=== PATIENT | male | born 1940 | race Caucasian/White ===

== ENCOUNTER 2017-09-27 23:42 | Emergency (ER) | payer MEDICARE, BC ==
[~2017-09-27] VITALS: Ht 170.2 cm; Wt 63.5 kg
[2017-09-27 23:50] VITALS: BP 180/111
[2017-09-28] MEDS ORDERED: CEPHALEXIN500 MG ORAL (01:13)
[2017-09-28] MEDS ORDERED: Cephalexin 500mg cap ORAL ONE (01:15)
[2017-09-28 01:31] VITALS: BP 153/86
--- NOTE | 2017-09-28 04:58 | Emergency Room Report ---
History of Present Illness General Chief Complaint: Nosebleed Source: Patient, Friend Present Illness HPI 77-year-old male since ED for evaluation. Patient brought in by EMS for epistaxis. Friend at bedside and states bleeding started about 3 hours ago. Sudden onset. Unable to control the bleeding so they called 911. Blood pressure high on initial evaluation. Patient denies any pain. Denies any recent trauma. Denies taking blood thinners. No other aggravating relieving factors. Denies any other associated symptoms Allergies: Coded Allergies: No Known Allergies (Unverified , 09/27/17) Patient History Past Medical History: GERD Past Surgical History: none Pertinent Family History: none Social History: Denies: smoking, alcohol use, drug use Immunizations: UTD Reviewed Nursing Documentation: PMH: Agreed; PSxH: Agreed Nursing Documentation-PMH Hx Gastrointestinal Problems: Yes - GERD Review of Systems All Other Systems: negative except mentioned in HPI Physical Exam Vital Signs Date Time Temp Pulse Resp B/P (MAP) Pulse Ox O2 Delivery O2 Flow Rate FiO2 09/27/17 23:39 108 18 156/98 95 Room Air Sp02 EP Interpretation: reviewed, normal General Appearance: no apparent distress, alert, GCS 15, non-toxic Head: normocephalic Eyes: bilateral eye normal inspection, bilateral eye PERRL ENT: hearing grossly normal, normal pharynx, no angioedema, normal voice, other - profuse bleeding from bilateral nares Neck: full range of motion, supple/symm/no masses Respiratory: chest non-tender, lungs clear, normal breath sounds, speaking full sentences Cardiovascular #1: regular rate, rhythm, no edema Gastrointestinal: normal inspection Rectal: deferred Genitourinary: no CVA tenderness Musculoskeletal: normal inspection Neurologic: alert, oriented x3, responsive, motor strength/tone normal, sensory intact, speech normal Psychiatric: normal inspection Skin: normal inspection Lymphatic: normal inspection Procedures Additional Procedure Procedure Narrative Patient placed in sitting position on stretcher. Rhino Rocket is soaked in normal saline. Rhino Rocket has been inserted directly into the affected nostril until fully inserted. Air is used to inflate the balloon until Rhino Rocket secured in place. Epistaxis is now controlled. Patient tolerated procedure without difficulty Medical Decision Making Diagnostic Impression: Primary Impression: Epistaxis ER Course 77-year-old male presents to ED with epistaxis from bilateral nostrils nostril. No trauma Differential-anterior epistaxis, posterior epistaxis, coagulopathy Patient placed on stretcher. After initial history, physical exam reveals elderly female in no acute distress. Patient is actively bleeding from both nostrils, L >>R. I am unable to identify whether the bleeding his anterior versus posterior as the bleeding is profuse. Patient is protecting his airway. Rhino Rocket is placed in both nares and bleeding is now controlled. Patient observed in ED. No recurrence of bleeding. Blood pressure is now controlled without acute intervention. Discussed findings with friend, patient and son at bedside recommend follow-up with ENT and patient can return here in 2 days for Rhino Rocket removal. Given Keflex in ED. I will discharge and antibiotics. I will provide ENT referral Diagnoses-epistaxis Stable and discharged to home with prescription for Keflex. Rhino Rocket in place. Followup with ENT. Return to ED if symptoms recur or worsen Last Vital Signs Date Time Temp Pulse Resp B/P (MAP) Pulse Ox O2 Delivery O2 Flow Rate FiO2 09/28/17 01:31 89 22 153/86 96 Room Air Status: improved Disposition: HOME, SELF-CARE Condition: Stable Scripts Cephalexin* (KEFLEX*) 500 Mg Capsule 500 MG ORAL EVERY 6 HOURS, #28 CAP Prov: Chele Sagastume MD 09/28/17 Referrals: NORMAN DE LEON Aric K. MD Patient Instructions: Nosebleed, [id number] Chele Sagastume MD September 28, 2017 04:58
== END 2017-09-28 01:31 | disposition home or self-care (01) ==
LOC: EDBD 23:42 → EMR 23:59
DX: R04.0 Epistaxis (principal); K21.9 Gastro-esophageal reflux disease without esophagitis
CPT/HCPCS: 30901; 99283